=== PATIENT | male | born 1975 | race Caucasian/White ===

== ENCOUNTER → 2022-09-09 | Outpatient (CLI) | payer OTHER ==
[~2022-09-09] MED LIST: 00186-0370-20 IH; CELEXA40 MG PO; CLARITIN 1010 MG/TAB PO; CLEOCIN HC150 MG/CAP PO; CONCERTA18 MG; CONCERTA18 MG PO; COZAAR100 MG PO; HYZAAR 12.5 MG-1 TAB PO; IBU800 M1 PO
== END ==
LOC: ZCOL.LAB 19:51
DX: K14.0 Glossitis (principal)